=== PATIENT | female | born 1940 | race Hispanic/Latino ===

== ENCOUNTER 2018-01-18 19:09 | Emergency (ER) | payer MEDICARE, OTHER ==
[~2018-01-18] VITALS: Ht 152.4 cm; Wt 69.4 kg
--- OUTSIDE RECORDS SUMMARY | 2018-01-18 19:12 | XMS REPORT | Summary of Care ---
Author Author DONAVON FIGUEROA M.D. Organization Unknown Address [facility] Phone Unavailable Care Team Providers Care Pouch Maker Name Role Phone DONAVON FIGUEROA M.D. 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 Trigger ring finger of left hand (727.03, M65.342) Status: Active Medications Name Dates Details Naproxen TABS Active Pantoprazole Sodium 40 MG Intravenous Solution Reconstituted * Refills: 0 Active Xalatan SOLN * Refills: 0 Active Allergies and Adverse Reactions Name Dates Details No Known Drug Allergies (Allergy) Status: Active Past Medical History Name Dates Details History of arthritis (V13.4, Z87.39) Status: Resolved History of osteoporosis (V13.59, Z87.39) Status: Resolved Procedures Procedure Dates Details Procedures not documented Immunization Name Dates Details Immunizations not documented Family History Name Dates Details Family history of Heart trouble (429.9, I51.9) Status: Active Family history of malignant neoplasm (V16.9, Z80.9) Status: Active Family history of cerebrovascular accident (CVA) (V17.1, Z82.3) Status: Active Name Dates Details Family history of Heart trouble (429.9, I51.9) Status: Active Family history of malignant neoplasm (V16.9, Z80.9) Status: Active Family history of cerebrovascular accident (CVA) (V17.1, Z82.3) Status: Active Social History Name Dates Details Unknown if ever smoked Vital Signs Date Test Result Details No Known Vitals to report Results Date Description Value Details Results not documented Plan of Care Name Dates Details Planned Observations Planned Goals not documented Planned Encounters Physical Therapy Referral Ortho Appointment; DONAVON FIGUEROA M.D. On: 01-Feb-2018 8:00 Interventions Provided Plan* Orders: * Occupational Therapy * Medications: * Medications (prescribed or recommended at this visit): * Acetaminophen * - Pain patch. * Follow Up: * Return to the clinic in 6 weeks or as needed. Instructions Name Dates Details Instructions not documented Encounters Appointment; DONAVON FIGUEROA M.D. Encounter Diagnosis: Problem not documented On: 22-Jun-2017 9:15 Appointment; DONAVON FIGUEROA M.D. Encounter Diagnosis: Problem not documented On: 24-Aug-2017 9:15 Appointment; DONAVON FIGUEROA M.D. Encounter Diagnosis: Problem not documented On: 31-Aug-2017 8:30 Appointment; DONAVON FIGUEROA M.D. Encounter Diagnosis: Problem not documented On: 14-Dec-2017 8:00
[2018-01-18] MEDS ORDERED: TRAMADOL HCL 50 MG TAB PO ONE (19:30)
--- NOTE | 2018-01-18 20:45 | Diagnostic Imaging Report ---
Radiographs of the right wrist - 3 views HISTORY: Pain COMPARISON: None available. FINDINGS: Bones: Transverse fracture through the base of the right ulnar styloid bone with soft tissue swelling. Osseous alignment is within normal limits. Joints: The joint spaces are well-maintained. Soft tissues: No radiopaque foreign body. IMPRESSION: Transverse fracture through the base of the right ulnar styloid bone with soft tissue swelling. Signed by: Dr. Chong Carrion M.D. on 01/18/2018 8:41 PM
== END 2018-01-18 21:55 | disposition home or self-care (01) ==
LOC: ER 19:09
DX: S52.611A Displaced fracture of right ulna styloid process, initial encounter for closed fracture (principal); W01.0XXA Fall on same level from slipping, tripping and stumbling without subsequent striking against object, initial encounter; Y92.009 Unspecified place in unspecified non-institutional (private) residence as the place of occurrence of the external cause
CPT/HCPCS: 99283

== ENCOUNTER → 2018-07-25 | Outpatient (RCR) | payer MEDICARE | LOC: PT 07-12 09:23 | PROVIDERS: ATTEND Specialist | DX: M75.42 Impingement syndrome of left shoulder (principal); M25.512 Pain in left shoulder; M25.612 Stiffness of left shoulder, not elsewhere classified; M62.81 Muscle weakness (generalized) | CPT/HCPCS: 97110 ×3; 97162; G8984; G8985 ==

== ENCOUNTER 2018-07-30 09:03 | Outpatient (RCR) | payer MEDICARE | END 2018-08-24 | LOC: PT 09:03 | PROVIDERS: ATTEND Specialist | DX: M75.42 Impingement syndrome of left shoulder (principal); M62.81 Muscle weakness (generalized); M25.512 Pain in left shoulder; M25.612 Stiffness of left shoulder, not elsewhere classified ==

== ENCOUNTER 2019-06-18 10:46 | Outpatient (RCR) | payer MEDICARE, OTHER | END 2019-06-24 | LOC: PT 10:46 | PROVIDERS: ATTEND Specialist | DX: M70.61 Trochanteric bursitis, right hip (principal); S93.421D Sprain of deltoid ligament of right ankle, subsequent encounter; M62.81 Muscle weakness (generalized); R26.2 Difficulty in walking, not elsewhere classified; M25.551 Pain in right hip; M25.651 Stiffness of right hip, not elsewhere classified ==

== ENCOUNTER 2019-11-20 10:06 | Outpatient (RCR) | payer MEDICARE | END 2019-11-23 | LOC: PT 10:06 | PROVIDERS: ATTEND Internal Medicine | DX: M75.101 Unspecified rotator cuff tear or rupture of right shoulder, not specified as traumatic (principal); M25.511 Pain in right shoulder ==

== ENCOUNTER 2019-12-16 08:43 | Outpatient (RCR) | payer MEDICARE | END 2019-12-24 | LOC: PT 08:43 | PROVIDERS: ATTEND Specialist | DX: M75.101 Unspecified rotator cuff tear or rupture of right shoulder, not specified as traumatic (principal); M25.511 Pain in right shoulder ==

== ENCOUNTER 2021-10-20 08:42 | Outpatient (RCR) | payer MEDICARE | END 2021-10-25 | LOC: PT 08:42 | PROVIDERS: ATTEND Specialist | DX: M77.8 Other enthesopathies, not elsewhere classified (principal); M75.101 Unspecified rotator cuff tear or rupture of right shoulder, not specified as traumatic ==

== ENCOUNTER 2021-11-12 09:00 | Outpatient (RCR) | payer MEDICARE | END 2021-11-22 | LOC: PT 09:00 | PROVIDERS: ATTEND Specialist | DX: M75.101 Unspecified rotator cuff tear or rupture of right shoulder, not specified as traumatic (principal) ==

== ENCOUNTER 2023-01-20 07:00 | Outpatient (RCR) | payer MEDICARE | END 2023-01-22 | LOC: PT 07:00 | PROVIDERS: ATTEND Physician Assistant | DX: M17.11 Unilateral primary osteoarthritis, right knee (principal); M70.61 Trochanteric bursitis, right hip ==

== ENCOUNTER 2023-01-31 08:00 | Outpatient (RCR) | payer MEDICARE | END 2023-02-22 | LOC: PT 08:00 | PROVIDERS: ATTEND Physician Assistant | DX: M17.11 Unilateral primary osteoarthritis, right knee (principal); M70.61 Trochanteric bursitis, right hip ==

== ENCOUNTER → 2023-03-14 | Outpatient (CLI) | payer MEDICARE | LOC: RAD 15:10 | PROVIDERS: ATTEND Physician Assistant | DX: M25.511 Pain in right shoulder (principal) ==

== ENCOUNTER 2024-04-25 11:21 | Emergency (ER) | payer MEDICARE, MEDICAID ==
[~2024-04-25] VITALS: Ht 152.4 cm; Wt 62.1 kg
[2024-04-25 11:40] VITALS: PULSE 87; RESP 16; TEMP 97.5; O2SAT 100
[2024-04-25] MEDS ORDERED: NAPROXEN250 MG PO (11:56)
== END 2024-04-25 12:00 | disposition home or self-care (01) ==
LOC: ER 11:27
DX: S46.212A Strain of muscle, fascia and tendon of other parts of biceps, left arm, initial encounter (principal); X50.0XXA Overexertion from strenuous movement or load, initial encounter; Y92.89 Other specified places as the place of occurrence of the external cause; K21.9 Gastro-esophageal reflux disease without esophagitis; R94.31 Abnormal electrocardiogram [ECG] [EKG]
CPT/HCPCS: 93005; 99283

== ENCOUNTER 2024-10-21 18:09 | Emergency (ER) | payer MEDICARE, MEDICAID ==
[~2024-10-21] VITALS: Ht 152.4 cm; Wt 60.8 kg
[~2024-10-21 18:09] MED LIST: NAPROXEN250 MG PO
[2024-10-21] MEDS: KETOROLAC TROMETHAMINE 60 MG/2 ML VIAL IM ONE (18:54)
[2024-10-21] MEDS ORDERED: ULTRAM 50MG50 MG PO (19:57)
[2024-10-21 20:56] VITALS: PULSE 83; RESP 17; TEMP 97.8
[2024-10-21 21:07] VITALS: BP 122/89; PULSE 83; RESP 16; TEMP 97.8; O2SAT 100
== END 2024-10-21 21:09 | disposition home or self-care (01) ==
LOC: ER 18:29
DX: M25.512 Pain in left shoulder (principal); X50.1XXA Overexertion from prolonged static or awkward postures, initial encounter; Y92.22 Religious institution as the place of occurrence of the external cause; K21.9 Gastro-esophageal reflux disease without esophagitis
CPT/HCPCS: 29240; 73030; 93005; 99284; J1885